=== PATIENT | male | born 1975 | race Caucasian/White ===

== ENCOUNTER 2021-03-31 16:23 | Emergency (ER) | payer OTHER, SELFPAY ==
[2021-03-31 16:56] VITALS: BP 151/101; PULSE 82; RESP 20; TEMP 36.2; O2SAT 98; BMI 30.4
--- NOTE | 2021-03-31 19:55 | ED.GENADULT ---
HPI - General Adult General Chief complaint: General Medical Stated complaint: Needle stick/work related Time Seen by Provider: 03/31/21 19:55 History of Present Illness HPI narrative: Patient presents for evaluation after a needlestick in the dialysis clinic tonight Our patient is immunized to hepatitis B Source patient was HIV negative when he entered dialysis at a year ago and is well known to our patient and has no history of IV drug use or any risky behaviors for HIV Related Data Allergies Allergy/AdvReac Type Severity Reaction Status Date / Time No Known Allergies Allergy Verified 03/31/21 19:30 Review of Systems Review of Systems: Positive for needlestick No dizziness no weakness no numbness weakness or tingling no laceration Yes all other systems are reviewed and are negative PMFSH Past Medical History Source: nursing notes reviewed Social History Social History Advance Directives: No Physical Exam Vital Signs: Vital Signs: Last Vital Signs Temp 97.1 F 03/31/21 16:56 Pulse 82 03/31/21 16:56 Resp 20 03/31/21 16:56 BP 151/101 H 03/31/21 16:56 Pulse Ox 98 03/31/21 16:56 BMI result Body Mass Index 30.4 General appearance no acute distress Head is normocephalic atraumatic Neck is supple Respiratory no distress Extremities full range of motion x4 There was no visible wound on his hand from where he got the needlestick Neuro no focal deficit Course Course Course Narrative: Discussion with patient and we agreed it is very low risk for HIV transmission as patient tested negative 1 year and half ago and half ago and is well known to our patient and does not engage in risky behaviors I offered the option of taking a short course of prophylactic medication pending a current HIV results for the source patient and our patient today refuse. He is a aware that there is a very remote possibility and does not want the medication Discharge Plan Discharge Clinical Impression: Accidental hypodermic needlestick injury Patient Disposition: Home, Self-Care Additional Instructions: As the source patient was HIV negative 1 year ago and does not engage in risky behaviors you did not want the prophylaxis . I agreed the exposure is very low risk but no exposures is 0 risk Follow with [facility] as needed for work related exposure and follow up on Hiv test of the source patient Return any concerns Your blood pressure today was 151/101 which was high Many people coming to the ER have an isolated reading of elevated blood pressure but it could also be a warning that you may have blood pressure that is elevated so either at work or at home take her blood pressure daily for 10 days and keep a record of it and see your primary care physician Referrals: [facility] [Provider Group] - 2 days Interventions: ED Discharge Assessment Last Done: 03/31/21 20:20 Discharge Date/Time: 03/31/21 20:34
== END 2021-03-31 20:34 | disposition home or self-care (01) ==
LOC: HO.ED 20:24
PROVIDERS: Emergency Provider Emergency Medicine Emergency Medical Services
DX: Z04.2 Encounter for examination and observation following work accident (principal); Z77.21 Contact with and (suspected) exposure to potentially hazardous body fluids
CPT/HCPCS: 99283